=== PATIENT | male | born 1960 | race Caucasian/White ===

== ENCOUNTER 2021-10-28 10:11 | Emergency (ER) | payer BC ==
[2021-10-28] MEDS ORDERED: IBUPROFEN 600 MG TAB PO STA (10:28)
[2021-10-28] MEDS ORDERED: ACETAMINOPHEN TAB 500 MG TAB PO STA (10:28)
--- NOTE | 2021-10-28 10:31 | ED ---
General Adult HPI - General Stated complaint: Covid + 10/27,cough,MEYER Time Seen by Provider: 10/28/21 10:28 Source: patient, RN notes reviewed Mode of arrival: ambulatory Limitations: no limitations - History of Present Illness Initial comments: 61-year-old male presents emergency Department chief complaint of COVID-19. Patient states symptoms started last 2 days his was positive he did get tested yesterday in urgent care. Patient states she's had a headache, cough, body aches. Patient states that his has COVID-19 pneumonia and is admitted to the hospital. No GI symptoms. No prior vaccine. - Related Data Allergies Allergy/AdvReac Type Severity Reaction Status Date / Time pistachio nut Allergy Unknown Verified 10/28/21 10:31 Review of Systems ROS Statement: Those systems with pertinent positive or pertinent negative responses have been documented in the HPI. ROS Other: All systems not noted in ROS Statement are negative. General Exam General appearance: alert, in no apparent distress Head exam: Present: atraumatic, normocephalic, normal inspection Eye exam: Present: normal appearance, PERRL, EOMI. Absent: scleral icterus, conjunctival injection, periorbital swelling ENT exam: Present: normal exam, normal oropharynx, mucous membranes moist Neck exam: Present: normal inspection, full ROM. Absent: tenderness, meningismus, lymphadenopathy Respiratory exam: Present: normal lung sounds bilaterally. Absent: respiratory distress, wheezes, rales, rhonchi, stridor Cardiovascular Exam: Present: regular rate, normal rhythm, normal heart sounds. Absent: systolic murmur, diastolic murmur, rubs, gallop, clicks Neurological exam: Present: alert, oriented X3 Course Vital Signs 10/28/21 10/28/21 10:28 11:55 Temperature 102.2 F H Pulse Rate 109 H 86 Respiratory 18 20 Rate Blood Pressure 146/83 116/66 O2 Sat by Pulse 96 94 L Oximetry Medical Decision Making - Medical Decision Making Patient does have mild pneumonia on x-ray consistent with covid 19 Pneumonia, patient did receive monoclonal antibodies will be discharged stable condition. Disposition Clinical Impression: COVID-19 Disposition: HOME SELF-CARE Condition: Stable Instructions (If sedation given, give patient instructions): Coronavirus Disease 2019 (COVID-19) Additional Instructions: Please return to the Emergency Department if symptoms worsen or any other concerns. Is patient prescribed a controlled substance at d/c from ED?: No Referrals: None,Stated [Primary Care Provider] - 1-2 days Time of Disposition: 12:24
[2021-10-28 10:32] VITALS: TEMP 102.2
--- NOTE | 2021-10-28 10:46 | XR ---
EXAMINATION TYPE: XR chest 2V DATE OF EXAM: 10/28/2021 HISTORY: Shortness of breath. COMPARISON: None. TECHNIQUE: Single view of the chest is submitted. FINDINGS: Demonstrated are scattered senescent parenchymal change. Focal Infiltrate left upper lobe. Correlate for pneumonia. Follow-up until resolution is advised to e xclude other possibilities. The heart is stable. Hilar and mediastinal structures are within normal limits. Degenerative changes are seen of the dorsal spine. IMPRESSION: 1. Focal Infiltrate left upper lobe. Correlate for pneumonia. Follow-up until resolution is advised to exclude other possibilities.
[2021-10-28] MEDS ORDERED: SODIUM CHLORIDE 0.9% 50 ML IVPB ONE (11:00)
[2021-10-28] MEDS ORDERED: SOTROVIMAB (EUA) 500 MG in SODIUM CHLORIDE 0.9% 100 ML IVPB ONE (11:00)
[2021-10-28 13:10] VITALS: BP 132/84; PULSE 95; RESP 18
== END 2021-10-28 13:10 | disposition home or self-care (01) ==
LOC: EC 10:11
DX: U07.1 COVID-19 (principal); J12.82 Pneumonia due to coronavirus disease 2019
CPT/HCPCS: 71046; 99284; Q0247